=== PATIENT | female | born 1995 | race Caucasian/White ===

== ENCOUNTER 2017-09-26 12:29 | Emergency (ER) | payer MEDICAID ==
[2017-09-26] MEDS ORDERED: LIDOCAINE 2% VISCOUS 15 ML UDCUP PO ONE (14:17)
[2017-09-26] MEDS ORDERED: ONDANSETRON 4 MG/2 ML VIAL IVP ONE (14:17)
[2017-09-26] MEDS ORDERED: MAG HYDROX/AL HYDROX/SIMETH 30 ML UDCUP PO ONE (14:17)
[2017-09-26] MEDS ORDERED: NS 1,000 ML IV ONE (14:17)
[2017-09-26] MEDS ORDERED: HYOSCYAMINE SULFATE 0.125 MG TAB PO ONE (14:17)
[2017-09-26] MEDS ORDERED: KETOROLAC 30 MG/1 ML SDV IVP ONE (14:17)
--- NOTE | 2017-09-26 14:21 | EDPHY ---
H & P Stated Complaint: abdominal pain for over a week, dark stool starting this morning, [facility] [place] 09/23 Source: Patient Exam Limitations: No limitations - Personal History LMP (Females 10-55): Now - Medical/Surgical History Hx Asthma: No Hx Chronic Respiratory Disease: No Hx Diabetes: No Hx Cardiac Disease: No Hx Renal Disease: No Hx Cirrhosis: No Hx Alcoholism: No Hx HIV/AIDS: No Hx Splenectomy or Spleen Trauma: No Other PMH: denies - Family History Significant Family History: No pertinent family hx - Social History Smoking Status: Light smoker Time Seen by Provider: 09/26/17 14:04 HPI/ROS: CHIEF COMPLAINT: Right lower quadrant pain, dark stool HISTORY OF PRESENT ILLNESS: The patient is a 21-year-old healthy female who comes to the emergency department complaining of continued right lower quadrant pain and discomfort and now today 3 episodes of dark black stool. She also complains of frequent heartburn. She was seen at the [facility] on Tuesday and had a normal CT scan of her abdomen and normal lab work. She was given magnesium citrate. She states that she had several bowel movements and the constipation improved but she continued to have mild pain in her right lower quadrant. She was trying to ignore it until today when she noticed black stool. She states that she does frequent heartburn and had it this morning but those symptoms have resolved. During her previous visit she declined pelvic examination. No fevers. Mild nausea but no vomiting. REVIEW OF SYSTEMS: Constitutional: denies: chills, fever, recent illness, recent injury EENTM: denies: blurred vision, double vision, nose congestion Respiratory: denies: cough, shortness of breath Cardiac: denies: chest pain, irregular heart rate, lightheadedness, palpitations Gastrointestinal/Abdominal: denies: abdominal pain, diarrhea, nausea, vomiting, blood streaked stools Genitourinary: denies: dysuria, frequency, hematuria, pain Musculoskeletal: denies: joint pain, muscle pain Skin: denies: lesions, rash, jaundice, bruising Neurological: denies: headache, numbness, paresthesia, tingling, dizziness, weakness Hematologic/Lymphatic: denies: blood clots, easy bleeding, easy bruising Immunologic/allergic: denies: HIV/AIDS, transplant EXAM: GENERAL: Well-appearing, well-nourished and in no acute distress. HEAD: Atraumatic, normocephalic. EYES: Pupils equal round and reactive to light, extraocular movements intact, sclera anicteric, conjunctiva are normal. ENT: TMs normal, nares patent, oropharynx clear without exudates. Moist mucous membranes. NECK: Normal range of motion, supple without lymphadenopathy or JVD. LUNGS: Breath sounds clear to auscultation bilaterally and equal. No wheezes rales or rhonchi. HEART: Regular rate and rhythm without murmurs, rubs or gallops. ABDOMEN: Right lower quadrant pain but Soft, nontender, normoactive bowel sounds. No guarding, no rebound. No masses appreciated. No pain with heel tap or leg lift BACK: No CVA tenderness, no spinal tenderness, step-offs or deformities EXTREMITIES: Normal range of motion, no pitting or edema. No clubbing or cyanosis. NEUROLOGICAL: Cranial nerves II through XII grossly intact. Normal speech, normal gait. 5/5 strength, normal movement in all extremities, normal sensation PSYCH: Normal mood, normal affect. SKIN: Warm, dry, normal turgor, no visible rashes or lesions. (Harry Younger) Constitutional: Initial Vital Signs Temperature (C) 36.7 C 09/26/17 12:34 Heart Rate 66 09/26/17 12:34 Respiratory Rate 18 09/26/17 12:34 Blood Pressure 106/74 09/26/17 12:34 O2 Sat (%) 99 09/26/17 12:34 O2 Delivery Mode Room Air Allergies/Adverse Reactions: No Known Allergies Allergy (Verified 09/26/17 12:34) Home Medications: Medication Instructions Recorded Hydrocodone/APAP 5/325 [Columbia 1 tab PO Q6H PRN #10 tab 09/26/17 5/325 (RX)] Medical Decision Making ED Course/Re-evaluation: Patient declines rectal exam but does consent to pelvic exam. She brought in stool in the bag that is dark. We will send this for Hemoccult. 3:05 p.m. pelvic exam unremarkable. Sample sent to the lab. No cervical motion tenderness. No adnexal masses. No abnormal discharge. Currently menstruating. Care transferred to Dr. Mireya Craig at shift change with ultrasound pending. (Harry Younger) Differential Diagnosis: The differential diagnosis for the patient's abdominal pain was considered including but not limited to ovarian cyst, pelvic inflammatory disease, ovarian torsion, urinary tract infection, abdominal wall strain. Differential diagnosis for the patient's epigastric discomfort was considered including but not limited to GERD, ulcer disease, gastritis, alcoholic gastritis , pancreatitis. (Mireya Craig) Other Provider: I assumed care of this patient from Dr. Younger at 3:30 a.m.. We are awaiting the ultrasound results. Ultrasound was reported to me by Dr. Ragsdale is revealing normal pelvic ultrasound with no cyst, no free fluid. Appendix was not visualized but there are no secondary signs of appendicitis. Patient's stool for occult blood was positive. On my examination, the patient reports that she has had acid ingestion for quite some time, is under significant amount of stress, and has been controlling her acid ingestion with diet only. When she is under stress she reports not eating. Her abdominal pain started after drinking alcohol and having significant retching and vomiting. Patient reports the right lower quadrant discomfort is worse with coughing, worse with straining, worse when she stretches, and worse when she needs to engage her abdominal muscles. It is improved with the heating pad. On my examination she does have tenderness in the right lower quadrant which is worse with trying to do a sit-up. I suspect that this may be related to an abdominal wall strain. We discussed the fact that ultrasounds x2 as well as a CT scan does not demonstrate any obvious intra-abdominal cause of her discomfort. We discussed the fact that her stool was guaiac positive. I stressed to her the importance that she needs to take either of PPI or H2 suhas. We discussed diet for ulcers and gastritis, and I discussed the patient's course with Dr. Traylor from [facility]. Patient will follow up with them within the next week for re-evaluation. She understands that if she continues to have dark tarry stools, develops significant lightheadedness, dizziness, or fainting she should return to the emergency department immediately. I also refer the patient to Dr. Grissom for further evaluation of the abdominal wall discomfort. I cannot see or identify a clear hernia on examination at this point. (Mireya Craig) - Data Points Laboratory Results: Laboratory Results 09/26/17 14:30 09/26/17 14:30 Medications Given: Discontinued Medications Al Hydroxide/Mg Hydroxide (Maalox Susp) 30 ml PO ONCE ONE Stop: 09/26/17 14:18 Last Admin: 09/26/17 14:56 Dose: 30 ml Hyoscyamine Sulfate (Levsin, Hyomax-Sl) 0.25 mg PO ONCE ONE Stop: 09/26/17 14:18 Last Admin: 09/26/17 14:58 Dose: 0.25 mg Sodium Chloride (Ns) 1,000 mls @ 0 mls/hr IV EDNOW ONE; Wide Open PRN Reason: Protocol Stop: 09/26/17 14:18 Last Admin: 09/26/17 15:00 Dose: 1,000 mls Ketorolac Tromethamine (Toradol) 15 mg IVP EDNOW ONE Stop: 09/26/17 14:18 Last Admin: 09/26/17 14:58 Dose: 15 mg Lidocaine (Lidocaine 2% Viscous) 15 ml PO ONCE ONE Stop: 09/26/17 14:18 Last Admin: 09/26/17 14:56 Dose: 15 ml Ondansetron HCl (Zofran) 4 mg IVP EDNOW ONE Stop: 09/26/17 14:18 Last Admin: 09/26/17 14:58 Dose: 4 mg Pantoprazole Sodium (Protonix) 40 mg PO EDNOW ONE Stop: 09/26/17 16:26 Last Admin: 09/26/17 16:31 Dose: 40 mg Departure - Departure Disposition: Home, Routine, Self-Care Clinical Impression: Abdominal wall pain, Guaiac positive stools Abdominal pain Qualifiers: Abdominal location: right lower quadrant Qualified Code(s): R10.31 - Right lower quadrant pain Condition: Good Instructions: Gastritis (ED), Diet for Stomach Ulcers and Gastritis (ED) Additional Instructions: Please follow up with [facility] as soon as possible. Your course has been discussed with Dr. Finesse Traylor. You may take omeprazole each evening, 40 mg. If you feel like this gives you constipation you could also take ranitidine which is available [id number]-[id number] each evening. Please use Tylenol for pain. You been given a short course of Columbia, which you may use for severe pain. Please be aware that this may make you constipated. Please follow up with Dr. Ney Grissom regarding your abdominal wall pain. Return to the emergency department or seek care urgently if your symptoms are worsening despite the above measures, if you continue to have dark, tarry stools despite using the medications and walking or diet, if you have lightheadedness, dizziness or fainting, or if you developed fevers or chills, vomiting, or other concerns. Referrals: NONE *PRIMARY CARE P,. [Primary Care Provider] - As per Instructions Finesse Traylor MD, FACG [Medical Doctor] - As per Instructions Antolin Grissom MD [Medical Doctor] - As per Instructions Prescriptions: Hydrocodone/APAP 5/325 [Columbia 5/325 (RX)] 1 tab PO Q6H PRN #10 tab PRN Reason: Pain
[2017-09-26 14:44] LABS: PLATELET COUNT 242 10^3/uL (150-400)
[2017-09-26] MEDS ORDERED: PANTOPRAZOLE SODIUM 40 MG TAB PO ONE (16:25)
[2017-09-26 16:48] VITALS: BP 105/77
--- NOTE | 2017-09-27 11:11 | ASMTCMCOM ---
CM Note CM Note Notes: Received a call from the patient requesting assistance w/scheduling a follow-up appt w/ Dr Finesse Traylor at [facility] ([phone], fax: [phone]). Pt was referred to Dr Traylor after being seen in the ED yesterday. Pt was also seen on 09/23/17 at [facility] [place] [facility] for the same reason. CM called and spoke w/scheduling staff at [facility] and they said they probably have received the referral but it hasn't been scanned into the pts chart yet and because pt has Medicaid, they have to have the referral in the pt's chart before they can schedule her. This CM faxed via [employer] the referral and both of pt's ED visit reports including imaging reports, just in case original referral does not come through. Spoke w/pt again and informed her of the overall process and recommended she call [facility] this afternoon or tomorrow morning and hopefully they will have received the referrals by then. CM available for further assistance if needed. Date Signed: 09/27/2017 11:10 AM Electronically Signed By:Deedee Saul RN
[2017-09-27 12:16] LABS: GC AMPLIFICATION GENPROBE NEGATIVE (NEGATIVE)
== END 2017-09-26 16:47 | disposition home or self-care (01) ==
DX: R10.31 Right lower quadrant pain (principal); R19.5 Other fecal abnormalities; E86.9 Volume depletion, unspecified; F17.200 Nicotine dependence, unspecified, uncomplicated
CPT/HCPCS: 96374; J1885; J2405

== ENCOUNTER 2018-04-15 22:25 | Emergency (ER) | payer SELFPAY ==
[2018-04-15] MEDS ORDERED: METOCLOPRAMIDE 10 MG/2 ML VIAL IVP ONE (22:41)
[2018-04-15] MEDS ORDERED: NS 1,000 ML IV ONE (22:41)
[2018-04-15] MEDS ORDERED: KETOROLAC 30 MG/1 ML SDV IVP ONE (22:41)
[2018-04-15] MEDS ORDERED: DEXAMETHASONE 10 MG/ML VIAL IVP ONE (22:41)
--- NOTE | 2018-04-15 22:49 | EDPHY ---
H & P Smoking Status: Light smoker Time Seen by Provider: 04/15/18 22:31 HPI/ROS: HPI Headache. 22-year-old female by private vehicle with her friends. 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 She reports that she has had these headaches for about 7 years now. She reports that she gets 1- 2 headaches per year. She describes having a gradual onset headache this evening starting 2 hr ago. She describes it is coming on in waves of intensity involving her temples in the frontal aspect of her head. She has had associated nausea and an episode of vomiting, nonbilious, nonbloody on the way to the emergency department. She describes having photophobia and slightly blurry vision as well. The symptoms are typical of her previous migraine syndrome. No neck pain. No fever. ROS: Constitutional: No fever, no chills. No weakness. Eyes: No discharge. As above. ENT: No sore throat. No nasal congestion or rhinorrhea. Respiratory: No cough. No shortness of breath. Cardiac: No chest pain, no palpitations. Gastrointestinal: No abdominal pain, as above, no diarrhea. Genitourinary: No hematuria. No dysuria or increased frequency with urination. Musculoskeletal: No back pain. No neck pain. No myalgias or arthralgias. Skin: No rashes. Neurological: As above. No focal weakness or altered sensation. Past medical history: Migraine headaches. She is allergic to azithromycin. Social history: Nonsmoker. No alcohol. Here with her friends. Physical Exam: General Appearance: Alert, she appears uncomfortable but she is not in distress. This patient is responding to questions appropriately and in full sentences. This patient appears well-hydrated and well-nourished. Head: Normocephalic atraumatic. Eyes: Pupils equal and round and reactive to light, large at 4-2 mm bilaterally , no pallor or injection. No lid edema, erythema or injection. She has mild photophobia. No nystagmus. Gastrointestinal: Abdomen is soft and nontender, no masses, bowel sounds normal. No focal tenderness at McBurney's point. No Vazquez sign. Neurological: Motor sensory function is grossly intact. Cranial nerves are normal. Gait is normal. Skin: Warm and dry, no rashes. Musculoskeletal: Neck is supple and nontender. No pain on flexion of her neck. Extremities are symmetrical. All joints range without pain or impingement. Psychiatric: No agitation. No depression. Database: EKG: Imaging: Procedures: Emergency department course: Triage vital signs reviewed and are normal. An IV was placed. She was started on IV normal saline with 1 L to be given over the next hour. She has no contraindications to NSAIDs. No history of renal dysfunction or gastric ulcers. She has a normal creatinine from September of 2017. Initially she will be given 30 mg of IV Toradol, 10 mg of IV Decadron, 10 mg of IV Reglan and 25 mg of IV Benadryl. 11:00 p.m., the patient is being given her medications at this time. Care turned over to Dr. Wolf. Differential Diagnosis: The differential diagnosis on this patient includes but is not limited to migraine headache syndrome. Subarachnoid hemorrhage, sagittal sinus thrombosis , cavernous sinus thrombosis, meningitis, encephalitis, temporal arteritis unlikely. This represents a partial list of diagnoses considered. These considerations are based on history, physical exam, past history, reassessment and diagnostic testing. (Juma Herring) Constitutional: Initial Vital Signs Temperature (C) 36.6 C 04/15/18 22:37 Heart Rate 78 04/15/18 22:37 Respiratory Rate 12 04/15/18 22:37 Blood Pressure 125/72 H 04/15/18 22:37 O2 Sat (%) 98 04/15/18 22:37 O2 Delivery Mode Room Air Allergies/Adverse Reactions: azithromycin [From Zithromax Z-Mumtaz] Allergy (Verified 04/15/18 22:37) Home Medications: Medication Instructions Recorded Multivitamin [One-Daily 04/15/18 Multi-Vitamin] Medical Decision Making ED Course/Re-evaluation: I assumed care of this 22-year-old woman who presents with typical migraine headache for her. Patient was given migraine cocktail. I re-evaluated her and she was feeling better and sleepy. Her headache was completely resolved but she declined further medications stating she prefer to go home and sleep. Patient was discharged home in improved condition. (Marcela Wolf) - Data Points Medications Given: Discontinued Medications Dexamethasone (Decadron Injection) 10 mg IVP EDNOW ONE Stop: 04/15/18 22:42 Last Admin: 04/15/18 23:00 Dose: 10 mg Diphenhydramine HCl (Benadryl Injection) 25 mg IVP EDNOW ONE Stop: 04/15/18 22:42 Last Admin: 04/15/18 23:00 Dose: 25 mg Sodium Chloride (Ns) 1,000 mls @ 0 mls/hr IV ONCE ONE; Wide Open PRN Reason: Protocol Stop: 04/15/18 22:42 Last Admin: 04/15/18 23:01 Dose: 1,000 mls Ketorolac Tromethamine (Toradol) 30 mg IVP EDNOW ONE Stop: 04/15/18 22:42 Last Admin: 04/15/18 23:00 Dose: 30 mg Metoclopramide HCl (Reglan Injection) 10 mg IVP EDNOW ONE Stop: 04/15/18 22:42 Last Admin: 04/15/18 22:59 Dose: 10 mg Departure - Departure Disposition: Home, Routine, Self-Care Clinical Impression: Headache Qualifiers: Headache type: unspecified Headache chronicity pattern: acute headache Intractability: not intractable Qualified Code(s): R51 - Headache Condition: Good Instructions: Migraine Headache (ED) Additional Instructions: Read and follow provided instructions. Follow-up with Neurology, this week for re-evaluation and further management of your headaches. Return to the emergency department for return of headache, neck pain, fever, vomiting or other serious concerns. Referrals: Los Hatch DO [Medical Doctor] - As per Instructions
[2018-04-15 23:42] VITALS: BP 116/60
== END 2018-04-15 23:52 | disposition home or self-care (01) ==
LOC: CED 22:25
DX: R51 Headache (principal); E86.9 Volume depletion, unspecified
CPT/HCPCS: 96361-ER; 96374-ER; 96375-ER; 99284-ER; J1100; J1200; J1885; J2765